=== PATIENT | female | born 1975 | race American Indian/Alaskan Native ===

== ENCOUNTER 2018-02-28 08:53 | Outpatient (CLI) | payer OTHER ==
[2018-02-28 09:40] LABS: Blood Urea Nitrogen 7 mg/dL (7-17)
--- NOTE | 2018-02-28 12:37 | Cat Scan Report ---
CT ABDOMEN PELVIS WITH CONTRAST: HISTORY: Diverticulitis. COMPARISON: 01/29/13. TECHNIQUE: Helical CT in 1.25mm intervals following IV contrast. Sagittal and coronal reconstructions. FINDINGS: Lung bases: Normal. Liver: Normal. Biliary system: Normal. Pancreas: Normal. Spleen: Normal. Kidneys/ureters/bladder: Normal. Adrenal glands: Normal. Aorta: Normal. Intestines: Near complete resolution of the inflammatory changes in the sigmoid colon is demonstrated since the previous examination. Minimal fat stranding remains in the pelvis. No evidence for abscess or new areas of inflammation. 90% resolution of the diverticulitis is suspected. The remaining bowel loops are unremarkable. Appendix: Not confidently identified, correlate with surgical history. Pelvic viscera: The uterus is enlarged and lobular consistent with fibroids. No adnexal cyst or mass. Ascites: None. Adenopathy: None. Musculoskeletal: Normal. IMPRESSION: Computer near complete resolution of the sigmoid diverticulitis since 01/29/18. Uterine fibroid disease, stable.
== END 2018-02-28 08:54 | disposition home or self-care (01) ==
LOC: CT 08:53
PROVIDERS: ATTEND Surgery
DX: K57.30 Diverticulosis of large intestine without perforation or abscess without bleeding (principal); D25.9 Leiomyoma of uterus, unspecified
CPT/HCPCS: 36415; 74177; 82565; 84520; Q9967

== ENCOUNTER 2018-06-25 07:42 | Day surgery (SDC) | payer OTHER ==
[2018-06-25] MEDS ORDERED: NACL 0.9% 1000 ML 1,000 ML IV SCH (10:00)
--- NOTE | 2018-06-25 10:12 | Anesthesia Consultation ---
Anesthesia Consult and Med Hx - Airway Anesthetic Teeth Evaluation: Good, Caps (gold tooth front upper incisor cap) ROM Head & Neck: Adequate Mental/Hyoid Distance: Adequate Mallampati Class: Class II Intubation Access Assessment: Good - Pulmonary Exam CTA: Yes - Cardiac Exam Cardiac Exam: RRR - Pre-Operative Health Status ASA Pre-Surgery Classification: ASA3 Proposed Anesthetic Plan: MAC - Pulmonary Hx Smoking: No Hx Asthma: Yes (daily advair and PRN albuterol) SOB: No - Cardiovascular System Hx Hypertension: Yes Hx Pacemaker: No Hx Internal Defibrillator: No - Additional Comments Anesthesia Medical History Comments: Hx of anxiety , asthma- advair BID , albuterol PRN , and HTN
--- NOTE | 2018-06-25 10:13 | Anesthesia Day of Surgery ---
Anesthesia Day of Surgery - Day of Surgery Patient H&P Reviewed: No Patient is NPO: No
[2018-06-25] MEDS ORDERED: DIPRIVAN 10 MG/ML IV ONE ×2 (10:20)
--- NOTE | 2018-06-25 10:51 | Short Stay Summary ---
Short Stay Documentation Date of service: 06/25/18 Narrative H&P: the patient presents for diagnostic colonoscopy due to recent history of suspected diverticulitis, LLQ pain and exclusion of malignancy - History Past Medical History: hypertension Past Surgical History: Other (tubal ligation) Social history: no significant social history, no smoking, no alcohol abuse - Allergies and Medications Current Medications: Allergies No Known Allergies Allergy (Verified 01/23/18 12:11) Home Medications Medication Instructions Recorded Confirmed Last Taken Type Lisinopril [Prinivil] 5 mg PO QDAY 01/23/18 06/25/18 06/25/18 History ALBUTEROL Inhaler(NF) 2 puff INHALATION BID 06/25/18 06/25/18 06/24/18 History Advair 100-50 Diskus 1 puff INHALATION DAILY 06/25/18 06/25/18 06/23/18 History Prempro 0.3 mg-1.5 mg Tablet 1 tab PO DAILY 06/25/18 06/25/18 06/24/18 History Active Medications Sodium Chloride (Nacl 0.9% 1000 Ml) 1,000 mls @ 50 mls/hr IV DIRECT JAILYN Last Admin: 06/25/18 10:04 Dose: 50 mls/hr Documented by: - Physical exam General appearance: no acute distress, well-nourished Integumentary: no rash, no growths, no abnormal pigmentation HEENT: Atraumatic, PERRLA, EOMI Lungs: Clear to auscultation, Normal air movement Breasts: deferred Heart: Regular rate, Normal S1, Normal S2, No murmurs Gastrointestinal: normoactive bowel sounds, no tenderness, no distended, no masses, no guarding, no organomegaly, no hepatomegaly, no splenomegaly, no obese Female Genitourinary: deferred Rectal Exam: deferred Extremities: no ischemia, pulses intact, pulses symmetrical, No edema, normal temperature, normal color, Full ROM Neurological: Normal gait, Normal speech, Strength at 5/5 X4 ext, Normal tone, Sensation intact, Cranial nerves 3-12 NL - Brief post op/procedure progress note Date of procedure: 06/25/18 Findings: see dictated report Estimated blood loss: none Pathology: none Condition: stable - Disposition Condition at discharge: Good Disposition: DC-01 TO HOME OR SELFCARE - Discharge Diagnoses (1) History of diverticulitis Status: Acute (2) LLQ abdominal pain Status: Acute Short Stay Discharge Plan Activity: other (No driving for 24 hours) Weight Bearing Status: Weight Bear as Tolerated Diet: regular Follow up with: ALEKSANDRA ACHARYA MD [Primary Care Provider] - 7 Days
--- NOTE | 2018-06-25 10:52 | Operative Report ---
Operative Report Operative Report: Date of procedure: 06/25/2018 Preprocedure diagnosis: History of diverticulitis. Left lower quadrant pain, r ule out neoplasia of the colon. Post procedure diagnosis: Diverticula in the left and right colon Procedure: Colonoscopy to the cecum Endoscopist: Dr. Navarrete Anesthesia: Monitored anesthesia care per anesthesia department Estimated blood loss: 0 Medications: Monitored anesthesia care. See separate report by anesthesia for details. After careful discussion of the nature and purpose of the procedure as well as details of the technique risks benefits and alternatives the patient gave consent. Please see recent history and physical from the office. The patient was placed in the left lateral decubitus position and medicated per anesthesia. A rectal exam was performed sphincter tone was normal there were no masses palpable. The [employer] 570 scope was passed transanally and advanced under continuous direct vision without difficulty to the cecum. The colon was well prepared. The cecum was normal. The ascending colon scattered diverticula but otherwise was normal and on forward and retroflexed views. The transverse colon was normal. There were afterwards diverticula in the descending colon and sigmoid colon. The rectum was normal on forward and retroflexed views. The procedure was well-tolerated overall and the patient was observed in recovery. Conclusions: Scattered diverticula in the right and left colon. No evidence of neoplasia. Plan: Repeat colonoscopy in 10 years for screening purposes, unless indicated sooner. Signed electronically: Robel Navarrete M.D.
[2018-06-25 12:11] VITALS: BP 119/83
== END 2018-06-25 07:43 | disposition home or self-care (01) ==
LOC: GIO 07:42
PROVIDERS: ATTEND Internal Medicine Gastroenterology
DX: K57.30 Diverticulosis of large intestine without perforation or abscess without bleeding (principal); K57.32 Diverticulitis of large intestine without perforation or abscess without bleeding; R10.32 Left lower quadrant pain; I10 Essential (primary) hypertension; J45.909 Unspecified asthma, uncomplicated; F32.9 Major depressive disorder, single episode, unspecified; F41.9 Anxiety disorder, unspecified; Z98.51 Tubal ligation status; Z79.899 Other long term (current) drug therapy; Z87.440 Personal history of urinary (tract) infections; Z87.19 Personal history of other diseases of the digestive system; Z98.890 Other specified postprocedural states
CPT/HCPCS: 45378; J2704; J7030

== ENCOUNTER 2018-10-28 10:37 | Emergency (ER) | payer OTHER ==
[2018-10-28 11:27] LABS: Basophils # (Auto) 0.1 K/mm3 (0.0-0.1); Basophils % (Auto) 0.9 % (0.0-1.8); Eosinophils # (Auto) 0.1 K/mm3 (0.0-0.4); Eosinophils % (Auto) 2.3 % (0.0-4.3); Hematocrit 38.5 % (30.3-42.9); Hemoglobin 13.3 gm/dl (10.1-14.3); Lymphocytes # (Auto) 1.9 K/mm3 (1.2-5.4); Lymphocytes % (Auto) 29.6 % (13.4-35.0); Mean Corpuscular HGB Conc 35 % (30-34); Mean Corpuscular Volume 89 fl (79-97); Monocytes # (Auto) 0.5 K/mm3 (0.0-0.8); Monocytes % (Auto) 7.2 % (0.0-7.3); Platelet Count 257 K/mm3 (140-440); Red Blood Count 4.33 M/mm3 (3.65-5.03); Red Cell Distribution Width 13.7 % (13.2-15.2)
[2018-10-28 11:48] LABS: Alanine Aminotransferase 13 units/L (7-56); Albumin 3.9 g/dL (3.9-5); BUN/Creatinine Ratio 10; Blood Urea Nitrogen 6 mg/dL (7-17); Calcium 8.7 mg/dL (8.4-10.2); Hemolysis Index 8
--- NOTE | 2018-10-28 12:13 | Emergency Department Report ---
ED Abdominal Pain HPI - General Chief Complaint: Abdominal Pain Stated Complaint: ABD PAIN/NAUSEA Time Seen by Provider: 10/28/18 12:03 Source: patient Mode of arrival: Ambulatory Limitations: No Limitations - History of Present Illness Initial Comments: Patient is 43 years old female with history of diverticulitis. Patient presented to the ER complaining of left lower quadrant abdominal pain for the last 3 days associated with nausea. Patient denied any diarrhea, fever or chills. MD Complaint: abdominal pain -: days(s) Location: LLQ Radiation: none Severity: moderate Severity scale (0 -10): 5 Quality: sharp Consistency: intermittent - Related Data Home Medications Medication Instructions Recorded Confirmed Last Taken Lisinopril [Prinivil] 5 mg PO QDAY 01/23/18 06/25/18 06/25/18 ALBUTEROL Inhaler(NF) 2 puff INHALATION BID 06/25/18 06/25/18 06/24/18 Advair 100-50 Diskus 1 puff INHALATION DAILY 06/25/18 06/25/18 06/23/18 Prempro 0.3 mg-1.5 mg Tablet 1 tab PO DAILY 06/25/18 06/25/18 06/24/18 Allergies Allergy/AdvReac Type Severity Reaction Status Date / Time No Known Allergies Allergy Verified 01/23/18 12:11 ED Review of Systems ROS: Stated complaint: ABD PAIN/NAUSEA Other details as noted in HPI Comment: All other systems reviewed and negative Constitutional: denies: chills, fever Cardiovascular: denies: chest pain Gastrointestinal: abdominal pain, nausea. denies: vomiting, diarrhea, constipation, hematemesis, melena, hematochezia Musculoskeletal: denies: back pain Neurological: denies: headache, weakness ED Past Medical Hx - Past Medical History Previous Medical History?: Yes Hx Hypertension: Yes Hx Deep Vein Thrombosis: No Hx Asthma: Yes (daily advair and PRN albuterol) Additional medical history: Diverticulitis - Surgical History Past Surgical History?: Yes Hx Pacemaker: No Hx Internal Defibrillator: No Additional Surgical History: ABLATION-ENDOMETRIAL - Social History Smoking Status: Never Smoker Substance Use Type: None - Medications Home Medications: Home Medications Medication Instructions Recorded Confirmed Last Taken Type Lisinopril [Prinivil] 5 mg PO QDAY 01/23/18 06/25/18 06/25/18 History ALBUTEROL Inhaler(NF) 2 puff INHALATION BID 06/25/18 06/25/18 06/24/18 History Advair 100-50 Diskus 1 puff INHALATION DAILY 06/25/18 06/25/18 06/23/18 History Prempro 0.3 mg-1.5 mg Tablet 1 tab PO DAILY 06/25/18 06/25/18 06/24/18 History ED Physical Exam - General Limitations: No Limitations General appearance: alert, in no apparent distress - Head Head exam: Present: atraumatic, normocephalic, normal inspection - Eye Eye exam: Present: normal appearance, PERRL - ENT ENT exam: Present: normal exam, normal orophraynx, mucous membranes moist - Neck Neck exam: Present: normal inspection, full ROM. Absent: tenderness, meningismus, lymphadenopathy, thyromegaly - Respiratory Respiratory exam: Present: normal lung sounds bilaterally - Cardiovascular Cardiovascular Exam: Present: regular rate, normal rhythm, normal heart sounds - GI/Abdominal GI/Abdominal exam: Present: soft, tenderness, normal bowel sounds. Absent: distended, guarding, rebound, rigid, organomegaly, mass, bruit, pulsatile mass, hernia - Extremities Exam Extremities exam: Present: normal inspection, full ROM, normal capillary refill. Absent: tenderness, pedal edema, calf tenderness - Back Exam Back exam: Present: normal inspection, full ROM. Absent: CVA tenderness (R), CVA tenderness (L), muscle spasm, paraspinal tenderness, vertebral tenderness - Neurological Exam Neurological exam: Present: alert, oriented X3, CN II-XII intact, normal gait, reflexes normal - Psychiatric Psychiatric exam: Present: normal mood - Skin Skin exam: Present: warm, intact, normal color ED Course Vital Signs 10/28/18 10:56 Temperature 97.6 F Pulse Rate 84 Respiratory 18 Rate Blood Pressure 106/73 O2 Sat by Pulse 96 Oximetry ED Medical Decision Making - Lab Data Result diagrams: 10/28/18 11:08 10/28/18 11:08 - Radiology Data Radiology results: report reviewed Referring Physician: DULCE MARIA ESCALONA Patient Name: MARA FIGUEROA Date of : 1975 Sex: Female Report Date: 2018-10-28 Report Status: Finalized Findings [address] [place] [address] Cat Scan Report Signed Patient: MARA FIGUEROA MR#: [id number] : 1975 Acct:[id number] Age/Sex: 43 / F ADM Date: 10/28/18 Loc: ED Attending Dr: Ordering Physician: DULCE MARIA ESCALONA Date of Service: 10/28/18 Procedure(s): CT abdomen pelvis w con Accession Number(s): [id number] cc: DULCE MARIA ESCALONA CT ABDOMEN AND PELVIS WITH CONTRAST HISTORY: abdominal pain/history of diverticulitis COMPARISON: None. TECHNIQUE: Axial CT images were obtained through the abdomen and pelvis after 100 cc of Omnipaque 300 intravenously. Sagittal and coronal reformatted images. All CT scans at this location are performed using CT dose reduction for ALARA by means of automated exposure control. FINDINGS: CT ABDOMEN: Lung Bases: Clear. Liver: No significant abnormality. Biliary: No significant abnormality. Spleen: No significant abnormality. Unenlarged. Pancreas: No significant abnormality. Adrenals: No significant abnormality. Kidneys: No significant abnormality. Lymphatics: No lymphadenopathy. Vasculature: No significant abnormality. Bowel/Peritoneum: No evidence for bowel obstruction, mass or focal inflammation. There is trace fluid surrounding the descending duodenum as well as mild mucosal enhancement. No obvious ulceration. No free air. There are scattered diverticula in the colon. The appendix is not confidently identified. CT PELVIS: : The uterus is mildly enlarged. An exophytic fibroid to the left adnexal region measures up to 5.3 cm. A partially calcified fibroid near the uterine fundus measures 3 cm. No adnexal cyst or mass is identified. Osseous Structures: No significant abnormality. Additional Findings: None IMPRESSION: There is trace fluid surrounding the descending duodenum as well as mild mucosal enhancement. These findings suggests peptic ulcer disease. Acute pancreatitis could also be considered but is thought less likely. Please correlate with the clinical presentation of the patient. Uterine fibroid disease. Mild diverticulosis of the colon. Signer Name: Vargas Henry Jr, MD Signed: 10/28/2018 3:15 PM Workstation Name: [id number] Transcribed By: TTR Dictated By: VARGAS HENRY JR, MD Electronically Authenticated By: VARGAS HENRY JR, MD Signed Date/Time: 10/28/181514 DD/ 09 TD/TT: Critical care attestation.: If time is entered above; I have spent that time in minutes in the direct care of this critically ill patient, excluding procedure time. ED Disposition Clinical Impression: Abdominal pain, Peptic ulcer Disposition: - TO HOME OR SELFCARE Is pt being admited?: No Condition: Stable Instructions: Abdominal Pain (ED), Peptic Ulcer (ED) Referrals: PRIMARY CARE, [Primary Care Provider] - 3-5 Days
[2018-10-28 12:33] LABS: Color,Urine Yellow (Yellow)
[2018-10-28 12:34] LABS: Bilirubin,Urine NEG (Negative); Blood,Urine MOD (Negative); Mucus,Urine FEW /HPF; Protein,Urine <15 mg/dL mg/dL (Negative); Urobilinogen,Urine < 2.0 mg/dL (<2.0)
--- NOTE | 2018-10-28 15:19 | Cat Scan Report ---
CT ABDOMEN AND PELVIS WITH CONTRAST HISTORY: abdominal pain/history of diverticulitis COMPARISON: None. TECHNIQUE: Axial CT images were obtained through the abdomen and pelvis after 100 cc of Omnipaque 300 intravenously. Sagittal and coronal reformatted images. All CT scans at this location are performed using CT dose reduction for ALARA by means of automated exposure control. FINDINGS: CT ABDOMEN: Lung Bases: Clear. Liver: No significant abnormality. Biliary: No significant abnormality. Spleen: No significant abnormality. Unenlarged. Pancreas: No significant abnormality. Adrenals: No significant abnormality. Kidneys: No significant abnormality. Lymphatics: No lymphadenopathy. Vasculature: No significant abnormality. Bowel/Peritoneum: No evidence for bowel obstruction, mass or focal inflammation. There is trace fluid surrounding the descending duodenum as well as mild mucosal enhancement. No obvious ulceration. No f ree air. There are scattered diverticula in the colon. The appendix is not confidently identified. CT PELVIS: : The uterus is mildly enlarged. An exophytic fibroid to the left adnexal region measures up to 5.3 cm. A partially calcified fibroid near the uterine fundus measures 3 cm. No adnexal cyst or mass is identified. Osseous Structures: No significant abnormality. Additional Findings: None IMPRESSION: There is trace fluid surrounding the descending duodenum as well as mild mucosal enhancement. These f indings suggests peptic ulcer disease. Acute pancreatitis could also be considered but is thought les s likely. Please correlate with the clinical presentation of the patient. Uterine fibroid disease. Mild diverticulosis of the colon. Signer Name: Vargas Henry Jr, MD Signed: 10/28/2018 3:15 PM Workstation Name: [id number]
[2018-10-28 15:41] VITALS: BP 124/94
== END 2018-10-28 15:39 | disposition home or self-care (01) ==
LOC: ED 10:37
DX: K27.9 Peptic ulcer, site unspecified, unspecified as acute or chronic, without hemorrhage or perforation (principal); I10 Essential (primary) hypertension; J45.909 Unspecified asthma, uncomplicated; Z79.899 Other long term (current) drug therapy
CPT/HCPCS: 36415; 74177; 80053; 81001; 83690; 85025; 99284

== ENCOUNTER 2018-11-20 06:56 | Day surgery (SDC) | payer OTHER ==
[2018-11-20] MEDS ORDERED: WATER FOR IRRIG STERILE 1,000 ML BOTTLE ONE (07:16)
[2018-11-20] MEDS ORDERED: WATER FOR IRRIG STERILE 250 ML BOTTLE IR ONE (07:16)
[2018-11-20] MEDS ORDERED: SODIUM CHLORIDE 0.9% 1000 ML 1,000 ML IV SCH (08:00)
--- NOTE | 2018-11-20 08:03 | Anesthesia Consultation ---
Anesthesia Consult and Med Hx Date of service: 11/20/18 - Airway Anesthetic Teeth Evaluation: Good ROM Head & Neck: Adequate Mental/Hyoid Distance: Adequate Mallampati Class: Class II Intubation Access Assessment: Probably Good - Pulmonary Exam CTA: Yes - Cardiac Exam Cardiac Exam: RRR - Pre-Operative Health Status ASA Pre-Surgery Classification: ASA2 Proposed Anesthetic Plan: MAC - Pulmonary Hx Asthma: Yes (No recent hospitalization) - Cardiovascular System Hx Hypertension: Yes
--- NOTE | 2018-11-20 08:04 | Anesthesia Day of Surgery ---
Anesthesia Day of Surgery - Day of Surgery Patient Examined: Yes Patient H&P Reviewed: Yes Patient is NPO: Yes Beta Blockers: No
[2018-11-20] MEDS ORDERED: LIDOCAINE (2%) 20 MG/1 ML VIAL 20 ML MDV INFILTRATI ONE (08:07)
[2018-11-20] MEDS ORDERED: PROPOFOL 200 MG/20 ML VIAL IV ONE (08:07)
--- NOTE | 2018-11-20 09:07 | Short Stay Summary ---
Short Stay Documentation Date of service: 11/20/18 - History H&P: obtained from office - Allergies and Medications Current Medications: Allergies No Known Allergies Allergy (Verified 01/23/18 12:11) Home Medications Medication Instructions Recorded Confirmed Last Taken Type Lisinopril [Prinivil] 5 mg PO QDAY 01/23/18 11/20/18 11/20/18 History ALBUTEROL Inhaler(NF) 2 puff INHALATION BID 06/25/18 11/20/18 11/13/18 History Advair 100-50 Diskus 1 puff INHALATION DAILY 06/25/18 11/20/18 06/23/18 History Prempro 0.3 mg-1.5 mg Tablet 1 tab PO DAILY 06/25/18 11/20/18 11/19/18 History Active Medications Sodium Chloride (Nacl 0.9% 1000 Ml) 1,000 mls @ 50 mls/hr IV DIRECT JAILYN Last Admin: 11/20/18 07:53 Dose: 50 mls/hr Documented by: - Brief post op/procedure progress note Date of procedure: 11/20/18 Findings: see dictation Estimated blood loss: none Pathology: list (antrum biopsies for h.pylori) Specimen disposition: to lab Condition: stable - Disposition Condition at discharge: Good Disposition: DC-01 TO HOME OR SELFCARE - Discharge Diagnoses (1) Epigastric pain Status: Acute Short Stay Discharge Plan Activity: other (no driving for 24 hours) Weight Bearing Status: Full Weight Bearing Diet: regular Follow up with: ALEKSANDRA ACHARYA MD [Primary Care Provider] - 7 Days
--- NOTE | 2018-11-20 09:10 | Operative Report ---
Operative Report Operative Report: Date of procedure: 11/20/2018 Procedure: Esophagogastroduodenoscopy with antral biopsies for H. pylori. Preprocedure diagnosis: Epigastric pain not responsive to PPI therapy Post procedure diagnosis: Mild gastritis. No active ulcers. Small hiatus hernia. Mild distal esophagitis. Endoscopist: Dr. Navarrete Anesthesia: Monitored anesthesia care per anesthesia department Medications: Propofol per anesthesia. Estimated blood loss: 0 After careful discussion of the nature and purpose of the procedure as well as details the technique risks benefits and alternatives consent was obtained. The patient was placed in the left lateral decubitus position and medicated per anesthesia. The tip of the [employer] 570 video scope was passed per orum under direct vision into the esophagus and advanced into the stomach and descending duodenum. The descending duodenum the duodenal bulb and pylorus were symme trical and normal. The scope was withdrawn into the stomach and the stomach then gently insufflated with air. The antrum revealed patchy erythema but no ulcers or erosions. Biopsies were taken for H. pylori testing. The stomach was further insufflated and the scope was then retroflexed and partially withdrawn. The cardia, fundus, and body of the stomach were within normal limits and easily distensible.The scope was then withdrawn in the forward position. A small hiatus hernia was present. The esophagogastric junction was at 38 cm. Minimal distal esophagitis was present consistent with reflux, LA class A. The esophageal body was flowers normal throughout. The procedure was was well tolerated and the patient was observed in recovery. Impressions: Minimal antral gastritis. No active ulcers. Small hiatus hernia. Mild distal esophagitis. Plan: Await biopsies for H. pylori. Consideration of right upper quadrant ultrasound if not yet done. Electronically signed: Robel Navarrete MD
[2018-11-20 09:58] VITALS: BP 106/74
--- NOTE | 2018-11-20 15:49 | Post Anesthesia Evaluation ---
- Post Anesthesia Evaluation Patient Participated: Yes Airway Patent: Yes Stable Respiratory Function: Yes Nausea/Vomiting: No Temp > 96.8F: Yes Pain Manageable: Yes Adequeate Hydration: Yes Anesthesia Complications: No Block Receding Appropriately: Not Applicable Patient on Ventilator: No
== END 2018-11-20 06:57 | disposition home or self-care (01) ==
LOC: GIO 06:56
PROVIDERS: ATTEND Internal Medicine Gastroenterology
DX: K29.50 Unspecified chronic gastritis without bleeding (principal); K44.9 Diaphragmatic hernia without obstruction or gangrene; K20.8 Other esophagitis; R10.12 Left upper quadrant pain; K57.32 Diverticulitis of large intestine without perforation or abscess without bleeding; J45.909 Unspecified asthma, uncomplicated; I10 Essential (primary) hypertension; G43.909 Migraine, unspecified, not intractable, without status migrainosus; F41.9 Anxiety disorder, unspecified; F32.9 Major depressive disorder, single episode, unspecified; Z98.890 Other specified postprocedural states; Z98.51 Tubal ligation status; Z79.899 Other long term (current) drug therapy; Z83.3 Family history of diabetes mellitus; Z72.89 Other problems related to lifestyle; Z87.440 Personal history of urinary (tract) infections
CPT/HCPCS: 43239; 88305; 88342; J2704; J7030

== ENCOUNTER 2018-11-29 08:40 | Outpatient (CLI) | payer OTHER ==
--- NOTE | 2018-11-29 12:25 | Ultrasound Report ---
. LIMITED RUQ ABDOMINAL ULTRASOUND INDICATION: R10.13) EPIGASTIC PAIN. COMPARISON: No relevant prior imaging study available. FINDINGS: Pancreas: Visualized portions show no significant abnormality. Abdominal Aorta: No significant abnormality. IVC: No significant abnormality. Liver: The liver measures 18 cm in length. No significant abnormality. Normal hepatopedal blood flow in the main portal vein. Gallbladder: No significant abnormality. Bile ducts: No significant abnormality. Common bile duct measures 2.0 mm. Right kidney: No significant abnormality visualized.. Free fluid: None. Additional Findings: None. IMPRESSION: Unremarkable right upper quadrant ultrasound.. Signer Name: Vargas Henry Jr, MD Signed: 11/29/2018 12:21 PM Workstation Name: [id number]
== END 2018-11-29 08:41 | disposition home or self-care (01) ==
LOC: US 08:40
PROVIDERS: ATTEND Internal Medicine Gastroenterology
DX: R10.13 Epigastric pain (principal); I10 Essential (primary) hypertension; Z98.51 Tubal ligation status
CPT/HCPCS: 76705

== ENCOUNTER 2019-01-01 06:06 | Observation (INO) | payer OTHER ==
[2018-12-30 14:20] LABS: Basophils % (Auto) 0.5 % (0.0-1.8); Eosinophils # (Auto) 0.1 K/mm3 (0.0-0.4); Eosinophils % (Auto) 1.6 % (0.0-4.3); Hematocrit 39.4 % (30.3-42.9); Hemoglobin 13.5 gm/dl (10.1-14.3); Lymphocytes # (Auto) 1.7 K/mm3 (1.2-5.4); Lymphocytes % (Auto) 30.5 % (13.4-35.0); Mean Corpuscular HGB Conc 34 % (30-34); Mean Corpuscular Volume 90 fl (79-97); Monocytes # (Auto) 0.4 K/mm3 (0.0-0.8); Monocytes % (Auto) 7.1 % (0.0-7.3); Platelet Count 274 K/mm3 (140-440); Red Cell Distribution Width 14.3 % (13.2-15.2)
--- NOTE | 2018-12-30 14:21 | Anesthesia Consultation ---
Anesthesia Consult and Med Hx Date of service: 01/01/19 - Airway Anesthetic Teeth Evaluation: Chipped, Caps ROM Head & Neck: Adequate Mental/Hyoid Distance: Adequate Mallampati Class: Class II Intubation Access Assessment: Probably Good - Pre-Operative Health Status ASA Pre-Surgery Classification: ASA2 Proposed Anesthetic Plan: General Nerve Block: TAP - Pulmonary Hx Smoking: No Hx Asthma: Yes (Last used inhaler 2 mos ago) SOB: No - Cardiovascular System Hx Hypertension: Yes (x 2 yrs. States she can climb two flights of stairs) Hx Pacemaker: No Hx Internal Defibrillator: No - Central Nervous System Hx Psychiatric Problems: No - Gastrointestinal Hx Ulcer: Yes (Diverticulosis) Hx Gastroesophageal Reflux Disease: Yes - Hematic Hx Sickle Cell Disease: No - Other Systems Hx Alcohol Use: Yes (Occas) Hx Cancer: No
--- NOTE | 2018-12-31 17:14 | History and Physical Report ---
History of Present Illness Date of examination: 12/30/18 Date of admission: 01/01/2019 Chief complaint: pelvic pain and fibroids History of present illness: 43y/o with symptomatic uterine fibroids. The patient reports having worsening lower back and pelvic pain. Pelvic ultrasound demonstrates a leiomyoma measuring 6.2cm. The patient reports worsening of her symptoms Past History Past Medical History: asthma, hypertension, other (fibroids; diverticulosis) Past Surgical History: other (endometrial ablation; tubal ligation) Social history: - Obstetrical History : 3 Para: 2 Hx # Term Pregnancies: 1 Number of Pregnancies: 1 Spontaneous Abortions: 1 Induced : 0 Number of Living Children: 2 Medications and Allergies Allergies Allergy/AdvReac Type Severity Reaction Status Date / Time No Known Allergies Allergy Verified 12/26/18 16:53 Home Medications Medication Instructions Recorded Confirmed Last Taken Type Lisinopril [Prinivil] 10 mg PO QDAY 01/23/18 12/26/18 11/20/18 History ALBUTEROL Inhaler(NF) 2 puff INHALATION BID PRN 06/25/18 12/26/18 11/13/18 History Prempro 0.3 mg-1.5 mg Tablet 1 tab PO DAILY 06/25/18 12/26/18 11/19/18 History Esomeprazole Magnesium [NexIUM] 40 mg PO QDAY 12/26/18 12/26/18 Unknown History Sucralfate [Carafate] 1 tab PO ACHS 12/26/18 12/26/18 Unknown History Active Meds: Active Medications Celecoxib (Celebrex) 200 mg PO PREOP NR Stop: 01/01/19 23:00 Fentanyl (Sublimaze) 100 mcg IV ONCE PRN PRN Reason: sedation for nerve block Gabapentin (Gabapentin) 300 mg PO PREOP NR Stop: 01/01/19 23:00 Lactated Ringer's (Lactated Ringers) 1,000 mls @ 100 mls/hr IV DIRECT JAILYN Midazolam HCl (Versed) 2 mg IV PREOP NR Stop: 01/01/19 23:00 Review of Systems All systems: negative Genitourinary: pelvic pain - Vital Signs Vital signs: Vital Signs Temp Pulse Resp BP Pulse Ox 97.8 F 78 20 132/94 100 12/30/18 13:30 12/30/18 13:30 12/30/18 13:30 12/30/18 13:30 12/30/18 13:30 Temp Pulse Resp BP Pulse Ox 97.8 F 78 20 132/94 100 12/30/18 13:30 12/30/18 13:30 12/30/18 13:30 12/30/18 13:30 12/30/18 13:30 - Physical Exam Breasts: Positive: deferred Cardiovascular: Regular rate Lungs: Positive: Clear to auscultation Abdomen: Positive: normal appearance Results Result Diagrams: 12/30/18 13:45 All other labs normal. Assessment and Plan - Patient Problems (1) Chronic pelvic pain in female Status: Acute Plan to address problem: scheduled for a robotic hysterectomy (2) Leiomyoma Status: Acute
[~2019-01-01 06:06] MED LIST: CELECOXIB 200 MG CAP PO NR; GABAPENTIN 300 MG CAP PO NR; LACTATED RINGERS 1,000 ML IV SCH; MIDAZOLAM 2 MG/2 ML INJ IV NR; ceFAZolin/Water 2 GM/20 ML 2 GM/20 ML SYRINGE IV NR; fentaNYL 100 MCG/2 ML INJ IV PRN
[2019-01-01] MEDS ORDERED: ceFAZolin/STERILE WATER 2 GM/20 ML SYRINGE IV NR (07:15)
[2019-01-01] MEDS ORDERED: dexAMETHasone 4 MG/ML VIAL ONE (07:16)
[2019-01-01] MEDS ORDERED: BUPIVACAINE-EPINEPHRINE/PF 0.25%-1:200,000 (30 ML) VIAL INFILTRATI ONE (07:16)
[2019-01-01] MEDS ORDERED: MIDAZOLAM 2 MG/2 ML INJ ONE (07:19)
[2019-01-01] MEDS ORDERED: ROCURONIUM 50 MG/5 ML INJ IV ONE (07:19)
[2019-01-01] MEDS ORDERED: fentaNYL 100 MCG/2 ML INJ ONE (07:19)
[2019-01-01] MEDS ORDERED: LIDOCAINE MPF (2%) 20 MG/1 ML VIAL 5 ML ONE (07:19)
[2019-01-01] MEDS ORDERED: PROPOFOL 200 MG/20 ML VIAL IV ONE (07:19)
[2019-01-01] MEDS ORDERED: NEOMY 40 MG/POLYMYXIN B 200,000 UNITS/ML (GU) AMPULE IR ONE ×2 (07:20→08:41)
--- NOTE | 2019-01-01 07:29 | Anesthesia Day of Surgery ---
Anesthesia Day of Surgery - Day of Surgery Patient Examined: Yes Patient H&P Reviewed: Yes Patient is NPO: Yes
[2019-01-01] MEDS ORDERED: HYDROmorphone 1 MG/1 ML INJ IV PRN (07:31)
[2019-01-01] MEDS ORDERED: ONDANSETRON 4 MG/2 ML INJ ONE (08:42)
[2019-01-01] MEDS ORDERED: SODIUM CHLORIDE 0.9% IRR 1,500 ML BOTTLE IR ONE (08:42)
[2019-01-01] MEDS ORDERED: dexAMETHasone 20 MG/5 ML VIAL ONE (08:42)
[2019-01-01] MEDS ORDERED: PHENYLEPHRINE/NS 1,000 MCG/10 ML SYRINGE (OR USE) IV ONE ×2 (08:42→09:20)
[2019-01-01] MEDS ORDERED: METOCLOPRAMIDE 10 MG/2 ML INJ ONE (08:42)
[2019-01-01] MEDS ORDERED: SODIUM CHLORIDE 0.9% IRRIG SOLN 2000 ML IR ONE (08:44)
[2019-01-01] MEDS ORDERED: KETOROLAC 30 MG/1 ML INJ ONE (08:45)
[2019-01-01] MEDS ORDERED: NEOSTIGMINE 10MG/10 ML INJ MDV ONE (09:15)
[2019-01-01] MEDS ORDERED: GLYCOPYRROLATE 0.4 MG/2 ML INJ ONE ×2 (09:15→09:18)
[2019-01-01] MEDS ORDERED: MORPHINE 4 MG/1 ML INJ IV PRN (09:22)
[2019-01-01] MEDS ORDERED: ACETAMINOPHEN 325 MG TAB PO PRN (09:22)
[2019-01-01] MEDS ORDERED: ONDANSETRON 4 MG/2 ML INJ IV PRN (09:22)
[2019-01-01] MEDS ORDERED: IBUPROFEN 800 MG TAB PO PRN (09:22)
--- NOTE | 2019-01-01 09:22 | Operative Report ---
Operative Report Operative Report: Date of surgery: 01/01/2019 Preoperative diagnoses: Symptomatic uterine fibroids; chronic pelvic pain Postoperative diagnoses: Same as above Procedure: Robotic hysterectomy and bilateral salpingo-oophorectomy Surgeon: Nirmala Figueredo M.D. Mail Technician: Joy Guzman Anesthesia: Gen. endotracheal anesthesia Estimated blood loss: 50 mL Pathology: Uterus, cervix, leiomyomas, bilateral tubes and ovaries Indication: 43-year-old with a history of symptomatic uterine fibroids. The patient complains of worsening pelvic pain and lower back pain. Its undergo definitive surgical management. Procedure: The patient was taken to the operating room and given general endotracheal anesthesia without complication. She is prepped and draped in a normal sterile fashion. A bivalve speculum was placed in the patient's vagina and a single- tooth tenaculum placed on the anterior lip of the cervix. The uterus was sounded with the uterine sound. A [employer] uterine manipulator was placed in the bivalve speculum was then removed. Attention was then turned to the patient's abdomen where a 12 millimeter supra umbilical skin incision was then made. A Veress needle was placed and peritoneal entry was verified water-filled syringe. Insufflation of the peritoneal cavity was performed with CO2 gas. The 12 mm trocar was then placed under direct visualization. An additional 8 mm trocar was placed on the patient's left and right lateral side just opposite of the supraumbilical trocar. An additional 5 mm right lateral trocar was then placed as the accessory port. The Gomez Martin device was used to close the fascia of the 12 mm incision. The patient was then placed in steep Trendelenburg. The da Haile robot was then engaged. General survey of the patient's abdomen and pelvis revealed a significantly enlarged fibroid uterus. There was a large leiomyoma on the fundus of the uterus measuring 6-7 cm. A fenestrated forcep was placed in arm 2 and a vessel sealer was placed in arm 1. The surgeon then transferred to the surgical console. The infundibulopelvic ligament was then isolated on the right. The vessel sealer was used to coagulate the ligament which was then transected. The tube and ovary were transected from the supply. The round ligament was then coagulated and transected also. The vesicouterine peritoneum was then entered from the patient's right side. The uterine vessels were then coagulated with the vessel sealer. The vessels were then transected . Attention was then turned to the patient's left side where the infundibulopelvic ligament and mesosalpinx were again isolated coagulated and transected. The vesical peritoneum was then entered from the left and joined in the midline. Peritoneum was reflected off of the lower uterine segment. Uterine vessels were then coagulated and then transected. The blood supply to the uterus was adequately contained, a posterior colpotomy was made. The V care ring was visualized. Posterior colpotomy was created with the monopolar scissors. The incision was continued circumferentially until anterior colpotomy was made. The cervix and uterus were amputated from the vaginal cuff. The fundal myoma was excised in order to facilitate passage through the vagina. The uterus was then bivalved with the monopolar scissors.The uterus was then removed along with the leiomyoma, tubes and ovaries bilaterally through the vagina and a warm laparotomy sponge was placed and maintain the pneumoperit oneum. The vaginal cuff was then closed in a running fashion with V lock suture. Irrigation of the pelvis was performed. Hemoblast was applied to the incision. The skin was then reapproximated with 4-0 Monocryl. The tissue was sent to pathology which included the cervix, uterus, leiomyomas, tubes and ovaries. The patient was then successfully extubated. She was then taken to the recovery room in stable condition. All sponge laps and needle counts were correct x2.
[2019-01-01] MEDS ORDERED: D5W/LACTATED RINGERS 1,000 ML IV SCH (10:00)
[2019-01-01] MEDS ORDERED: LACTATED RINGERS 1,000 ML ONE ×2 (10:16→11:18)
[2019-01-01] MEDS ORDERED: ePHEDrine SULFATE 50 MG/1 ML INJ ONE (11:03)
[2019-01-01 11:14] LABS: Basophils % (Auto) 0.3 % (0.0-1.8); Eosinophils % (Auto) 0.2 % (0.0-4.3); Hematocrit 36.5 % (30.3-42.9); Hemoglobin 12.2 gm/dl (10.1-14.3); Lymphocytes # (Auto) 0.8 K/mm3 (1.2-5.4); Lymphocytes % (Auto) 12.9 % (13.4-35.0); Mean Corpuscular HGB Conc 33 % (30-34); Mean Corpuscular Volume 90 fl (79-97); Monocytes # (Auto) 0.2 K/mm3 (0.0-0.8); Monocytes % (Auto) 2.6 % (0.0-7.3); Platelet Count 269 K/mm3 (140-440); Red Blood Count 4.07 M/mm3 (3.65-5.03); Red Cell Distribution Width 14.5 % (13.2-15.2)
[2019-01-01] MEDS ORDERED: ePHEDrine SULFATE 50 MG/1 ML INJ IM ONE (11:15)
--- NOTE | 2019-01-01 13:17 | Post Anesthesia Evaluation ---
- Post Anesthesia Evaluation Patient Participated: Yes Airway Patent: Yes Stable Respiratory Function: Yes Nausea/Vomiting: No Temp > 96.8F: Yes Pain Manageable: Yes Adequeate Hydration: Yes Anesthesia Complications: No Block Receding Appropriately: No (Block for post op analgesia) Other Comments: Hypotension noted while in PACU. HR normal sinus on monitor, adequate UOP, abdomen soft and appropriately tender. CBC showed 1g drop in Hb. BP improved with fluid bolus and IM ephedrine.
[2019-01-01] MEDS: oxyCODONE /ACETAMINOPHEN 5-325MG TAB PO PRN (16:29)
[2019-01-01] MEDS: KETOROLAC 30 MG/1 ML INJ IV SCH (21:12)
[2019-01-01] MEDS ORDERED: ZOLPIDEM 5 MG TAB PO PRN (22:00)
[2019-01-02] MEDS: KETOROLAC 30 MG/1 ML INJ IV SCH ×2 (04:44→11:45)
[2019-01-02 04:48] LABS: Hematocrit 38.3 % (30.3-42.9); Hemoglobin 12.7 gm/dl (10.1-14.3)
[2019-01-02] MEDS: oxyCODONE /ACETAMINOPHEN 5-325MG TAB PO PRN (09:36)
--- NOTE | 2019-01-02 13:08 | Progress Note ---
Assessment and Plan - Patient Problems (1) Chronic pelvic pain in female Current Visit: No Status: Acute Plan to address problem: patient doing well discharge home (2) Leiomyoma Current Visit: No Status: Acute Subjective - Subjective Date of service: 01/02/19 Interval history: Patient doing well. Tolerating regular diet. Pain well controlled. Patient reports: appetite normal, voiding normally, pain well controlled Objective - Vital Signs Latest vital signs: Vital Signs Temp Pulse Pulse Resp Resp BP BP 01/02/19 09:36 20 01/02/19 07:27 97.9 F 79 18 102/62 01/02/19 05:35 97.8 F 75 20 95/62 01/02/19 05:14 18 01/02/19 04:44 18 01/02/19 01:15 97.7 F 73 18 98/60 01/01/19 22:00 18 01/01/19 21:42 18 01/01/19 21:12 18 01/01/19 20:33 97.2 F L 90 22 99/61 01/01/19 20:30 80 18 01/01/19 17:13 97.4 F L 92 H 18 90/60 Pulse Ox 01/02/19 09:36 01/02/19 07:27 96 01/02/19 05:35 95 01/02/19 05:14 01/02/19 04:44 01/02/19 01:15 95 01/01/19 22:00 01/01/19 21:42 01/01/19 21:12 01/01/19 20:33 95 01/01/19 20:30 01/01/19 17:13 Intake and Output 01/01/19 01/02/19 01/02/19 22:59 06:59 14:59 Intake Total 840 240 Output Total 2600 1300 Balance -1760 -1060 Intake: Oral 840 240 Output: Urine 2600 1300 Indwelling Catheter 2600 1300 Other: Total, Intake Amount 480 240 Total, Output Amount 800 1300 Voiding Method Indwelling Catheter - Exam Lungs: Present: Clear to auscultation Abdomen: Present: normal appearance
--- NOTE | 2019-01-02 13:09 | Discharge Summary ---
Providers - Providers Date of Admission: 01/01/19 09:22 Date of discharge: 01/02/19 Attending physician: AMARJIT DIETZ Primary care physician: ALEKSANDRA ACHARYA Hospitalization Reason for admission: other (uterine fibroids) Procedure: other (robotic hysterectomy and BSO) Incision: normal Discharge diagnosis: other (Uterine fibroids and pelvic pain) Hospital course: Patient admitted the day of surgery and underwent a robotic hysterectomy. See op note. Postop uneventful Condition at discharge: Good Disposition: DC-01 TO HOME OR SELFCARE - Discharge Diagnoses (1) Chronic pelvic pain in female Status: Acute (2) Leiomyoma Status: Acute Plan - Discharge Medications Prescriptions: Ibuprofen [Motrin] 800 mg PO Q8HR PRN #60 tablet PRN Reason: Pain, Mild (1-3) oxyCODONE /ACETAMINOPHEN [Percocet 5/325] 1 tab PO Q6HR PRN #30 tablet PRN Reason: Pain - Provider Discharge Summary Activity: no sex for 6 weeks, no heavy lifting 4 weeks, no strenuous exercise Diet: routine Instructions: routine Additional instructions: [] Smoking cessation referral if applicable(refer to patient education folder for contact #) [] Refer to [facility] Book[facility] Call your doctor immediately for: * Fever > 100.5 * Heavy vaginal bleeding ( >1 pad per hour) * Severe persistent headache * Shortness of breath * Reddened, hot, painful area to leg or breast * Drainage or odor from incision. * Keep incision clean and dry at all times and follow doctor's instructions regarding bathing/showering schedule followup with Dr Hsu in 4 weeks - Follow up plan
[2019-01-02 13:23] VITALS: BP 107/65
== END 2019-01-02 14:15 | disposition home or self-care (01) ==
LOC: OR 06:06 → OB 09:22
PROVIDERS: ADMIT Obstetrics & Gynecology; ATTEND Obstetrics & Gynecology
DX: R10.2 Pelvic and perineal pain (principal); D21.9 Benign neoplasm of connective and other soft tissue, unspecified; J45.909 Unspecified asthma, uncomplicated; I10 Essential (primary) hypertension
CPT/HCPCS: 36415; 58573; 64450; 85014; 85018; 85025; 86850; 86900; 86901; 88307; 96372; 96374; 96376; A4217; G0378; J0690; J1100; J1885; J2250; J2270; J2370; J2405; J2704; J2710; J2765; J3010; J7120; S2900

== ENCOUNTER 2020-06-06 04:39 | Emergency (ER) | payer SELFPAY ==
[2020-06-06 06:31] LABS: Basophils % (Auto) 0.4 % (0.0-1.8); Eosinophils % (Auto) 0.4 % (0.0-4.3); Hematocrit 38.2 % (30.3-42.9); Hemoglobin 13.1 gm/dl (10.1-14.3); Lymphocytes # (Auto) 2.5 K/mm3 (1.2-5.4); Lymphocytes % (Auto) 28.3 % (13.4-35.0); Mean Corpuscular HGB Conc 34 % (30-34); Mean Corpuscular Volume 89 fl (79-97); Monocytes # (Auto) 0.7 K/mm3 (0.0-0.8); Monocytes % (Auto) 7.3 % (0.0-7.3); Platelet Count 264 K/mm3 (140-440); Red Blood Count 4.28 M/mm3 (3.65-5.03); Red Cell Distribution Width 14.9 % (13.2-15.2)
[2020-06-06 06:45] LABS: Alanine Aminotransferase 20 units/L (7-56); Albumin 3.9 g/dL (3.9-5); Blood Urea Nitrogen 11 mg/dL (7-17); Calcium 8.4 mg/dL (8.4-10.2); Hemolysis Index 1
[2020-06-06 06:46] LABS: BUN/Creatinine Ratio 16
[2020-06-06] MEDS ORDERED: SODIUM CHLORIDE 0.9% 1000 ML 1,000 ML IV ONE ×2 (07:29→09:36)
--- NOTE | 2020-06-06 09:44 | Emergency Department Report ---
ED General Adult HPI - General Chief complaint: Hyperglycemia Stated complaint: HIGH BLOOD SUGAR Time Seen by Provider: 06/06/20 09:35 Source: patient, EMS Mode of arrival: Wheelchair Limitations: No Limitations - History of Present Illness Initial comments: Patient is a 44-year-old female with history of prediabetes who presents emergency department for evaluation of general malaise and nausea for the past 7 hours without focal complaint. Patient denies chest pain, denies abdominal pain, denies fever. Patient denies dysuria, however, does complain of increased thirst. - Related Data Home Medications Medication Instructions Recorded Confirmed Last Taken lisinopriL [Prinivil] 10 mg PO QDAY 01/23/18 01/01/19 12/31/18 09:00 ALBUTEROL Inhaler(NF) 2 puff INHALATION BID PRN 06/25/18 12/26/18 11/13/18 Prempro 0.3 mg-1.5 mg Tablet 1 tab PO DAILY 06/25/18 01/01/19 12/31/18 09:00 Esomeprazole Magnesium [NexIUM] 40 mg PO QDAY 12/26/18 01/01/19 12/31/18 05:00 Sucralfate [Carafate] 1 tab PO ACHS 12/26/18 01/01/19 01/01/19 05:00 Previous Rx's Medication Instructions Recorded Last Taken Type Ibuprofen [Motrin] 800 mg PO Q8HR PRN #60 tablet 01/02/19 Unknown Rx oxyCODONE /ACETAMINOPHEN [Percocet 1 tab PO Q6HR PRN #30 tablet 01/02/19 Unknown Rx 5/325] metFORMIN [Glucophage] 500 mg PO BID #60 tablet 06/06/20 Unknown Rx Allergies Allergy/AdvReac Type Severity Reaction Status Date / Time No Known Allergies Allergy Verified 12/26/18 16:53 ED Review of Systems ROS: Stated complaint: HIGH BLOOD SUGAR Other details as noted in HPI Comment: All other systems reviewed and negative ED Past Medical Hx - Past Medical History Hx Hypertension: Yes Hx Deep Vein Thrombosis: No Hx Asthma: Yes (No recent hospitalization) Additional medical history: Diverticulitis - Surgical History Additional Surgical History: ABLATION-ENDOMETRIAL - Social History Smoking Status: Never Smoker Substance Use Type: None - Medications Home Medications: Home Medications Medication Instructions Recorded Confirmed Last Taken Type lisinopriL [Prinivil] 10 mg PO QDAY 01/23/18 01/01/19 12/31/18 09:00 History ALBUTEROL Inhaler(NF) 2 puff INHALATION BID PRN 06/25/18 12/26/18 11/13/18 H istory Prempro 0.3 mg-1.5 mg Tablet 1 tab PO DAILY 06/25/18 01/01/19 12/31/18 09:00 History Esomeprazole Magnesium [NexIUM] 40 mg PO QDAY 12/26/18 01/01/19 12/31/18 05:00 History Sucralfate [Carafate] 1 tab PO ACHS 12/26/18 01/01/19 01/01/19 05:00 History Ibuprofen [Motrin] 800 mg PO Q8HR PRN #60 tablet 01/02/19 Unknown Rx oxyCODONE /ACETAMINOPHEN [Percocet 1 tab PO Q6HR PRN #30 tablet 01/02/19 Unknown Rx 5/325] metFORMIN [Glucophage] 500 mg PO BID #60 tablet 06/06/20 Unknown Rx ED Physical Exam - General Limitations: No Limitations General appearance: alert, in no apparent distress - Head Head exam: Present: atraumatic, normocephalic - Eye Eye exam: Present: normal appearance - ENT ENT exam: Present: mucous membranes moist - Neck Neck exam: Present: normal inspection - Respiratory Respiratory exam: Present: normal lung sounds bilaterally. Absent: respiratory distress - Cardiovascular Cardiovascular Exam: Present: regular rate, normal rhythm - GI/Abdominal GI/Abdominal exam: Present: soft, normal bowel sounds - Extremities Exam Extremities exam: Present: normal inspection - Back Exam Back exam: Present: normal inspection - Neurological Exam Neurological exam: Present: alert, oriented X3 - Psychiatric Psychiatric exam: Present: normal affect, normal mood - Skin Skin exam: Present: warm, dry, intact, normal color. Absent: rash ED Course Vital Signs 06/06/20 06/06/20 06/06/20 04:46 10:09 14:29 Temperature 97.5 F L 97.9 F 98.2 F Pulse Rate 85 89 Respiratory 18 16 18 Rate Blood Pressure 132/70 Blood Pressure 116/69 146/86 [Right] O2 Sat by Pulse 100 93 Oximetry - Reevaluation(s) Reevaluation #1: 06/06/20 09:43 Patient initially treated with IV normal saline 1 L x 2 Reevaluation #2: 06/07/20 06:41 Diagnostics reassuring, patient states she feels much better after 2 L IV normal saline. Discussed with patient new diagnosis of diabetes type 2, advised patient she requires definitive diagnosis and further evaluation by primary care doctor. Advised patient to consult primary care doctor and/or self educate regarding dietary changes and necessary lifestyle changes moving forward. On discharge, patient in acute distress, neuro exam nonfocal. ED Medical Decision Making - Lab Data Result diagrams: 06/06/20 05:53 06/06/20 11:56 Labs 06/06/20 06/06/20 06/06/20 04:44 05:53 05:53 WBC 8.9 RBC 4.28 Hgb 13.1 Hct 38.2 MCV 89 MCH 31 MCHC 34 RDW 14.9 Plt Count 264 Lymph % (Auto) 28.3 Rapides % (Auto) 7.3 Eos % (Auto) 0.4 Baso % (Auto) 0.4 Lymph # (Auto) 2.5 Rapides # (Auto) 0.7 Eos # (Auto) 0.0 Baso # (Auto) 0.0 Seg Neutrophils % 63.6 Seg Neutrophils # 5.7 ABG pH POC ABG pCO2 POC ABG pO2 POC ABG HCO3 ABG O2 Saturation POC ABG Base Excess ABG Hemoglobin ABG Oxyhemoglobin ABG Methemoglobin ABG Sodium ABG Potassium ABG Chloride ABG Glucose VBG pH Carboxyhemoglobin FiO2 % Sodium 133 L Potassium 3.5 L Chloride 96.2 L Carbon Dioxide 21 L Anion Gap 19 BUN 11 Creatinine 0.7 Estimated GFR > 60 BUN/Creatinine Ratio 16 Glucose 317 H POC Glucose 267 H Calcium 8.4 Total Bilirubin 0.30 AST 14 ALT 20 Alkaline Phosphatase 90 Troponin T Total Protein 7.2 Albumin 3.9 Albumin/Globulin Ratio 1.2 HCG, Qual Arterial Blood Glucose Arterial Blood Ionized Calcium Urine Color Urine Turbidity Urine pH Ur Specific Pruden Urine Protein Urine Glucose (UA) Urine Ketones Urine Blood Urine Nitrite Urine Bilirubin Urine Urobilinogen Ur Leukocyte Esterase Urine WBC (Auto) Urine RBC (Auto) U Epithel Cells (Auto) Urine Mucus 06/06/20 06/06/20 06/06/20 05:53 05:53 11:56 WBC RBC Hgb Hct MCV MCH MCHC RDW Plt Count Lymph % (Auto) Rapides % (Auto) Eos % (Auto) Baso % (Auto) Lymph # (Auto) [place] # (Auto) Eos # (Auto) Baso # (Auto) Seg Neutrophils % Seg Neutrophils # ABG pH POC ABG pCO2 POC ABG pO2 POC ABG HCO3 ABG O2 Saturation POC ABG Base Excess ABG Hemoglobin ABG Oxyhemoglobin ABG Methemoglobin ABG Sodium ABG Potassium ABG Chloride ABG Glucose VBG pH 7.288 L Carboxyhemoglobin FiO2 % Sodium 138 Potassium 4.2 Chloride 102.6 Carbon Dioxide 24 Anion Gap 16 BUN 7 Creatinine 0.5 L Estimated GFR > 60 BUN/Creatinine Ratio 14 Glucose 206 H POC Glucose Calcium 8.1 L Total Bilirubin AST ALT Alkaline Phosphatase Troponin T Total Protein Albumin Albumin/Globulin Ratio HCG, Qual Negative Arterial Blood Glucose Arterial Blood Ionized Calcium Urine Color Urine Turbidity Urine pH Ur Specific Pruden Urine Protein Urine Glucose (UA) Urine Ketones Urine Blood Urine Nitrite Urine Bilirubin Urine Urobilinogen Ur Leukocyte Esterase Urine WBC (Auto) Urine RBC (Auto) U Epithel Cells (Auto) Urine Mucus 06/06/20 06/06/20 06/06/20 11:56 14:11 14:18 WBC RBC Hgb Hct MCV MCH MCHC RDW Plt Count Lymph % (Auto) Rapides % (Auto) Eos % (Auto) Baso % (Auto) Lymph # (Auto) [place] # (Auto) Eos # (Auto) Baso # (Auto) Seg Neutrophils % Seg Neutrophils # ABG pH 7.398 POC ABG pCO2 36.6 POC ABG pO2 71.3 L POC ABG HCO3 22.1 ABG O2 Saturation 95.1 POC ABG Base Excess -2.2 ABG Hemoglobin 14.2 ABG Oxyhemoglobin 94.2 ABG Methemoglobin 0.3 ABG Sodium 139.5 ABG Potassium 4.1 ABG Chloride 108.0 H ABG Glucose 183 H VBG pH 7.228 L Carboxyhemoglobin 0.6 FiO2 % 21.0 Sodium Potassium Chloride Carbon Dioxide Anion Gap BUN Creatinine Estimated GFR BUN/Creatinine Ratio Glucose POC Glucose Calcium Total Bilirubin AST ALT Alkaline Phosphatase Troponin T < 0.010 Total Protein Albumin Albumin/Globulin Ratio HCG, Qual Arterial Blood Glucose 183 H Arterial Blood Ionized Calcium 4.6 Urine Color Urine Turbidity Urine pH Ur Specific Pruden Urine Protein Urine Glucose (UA) Urine Ketones Urine Blood Urine Nitrite Urine Bilirubin Urine Urobilinogen Ur Leukocyte Esterase Urine WBC (Auto) Urine RBC (Auto) U Epithel Cells (Auto) Urine Mucus 06/06/20 Unknown WBC RBC Hgb Hct MCV MCH MCHC RDW Plt Count Lymph % (Auto) Rapides % (Auto) Eos % (Auto) Baso % (Auto) Lymph # (Auto) [place]ides # (Auto) Eos # (Auto) Baso # (Auto) Seg Neutrophils % Seg Neutrophils # ABG pH POC ABG pCO2 POC ABG pO2 POC ABG HCO3 ABG O2 Saturation POC ABG Base Excess ABG Hemoglobin ABG Oxyhemoglobin ABG Methemoglobin ABG Sodium ABG Potassium ABG Chloride ABG Glucose VBG pH Carboxyhemoglobin FiO2 % Sodium Potassium Chloride Carbon Dioxide Anion Gap BUN Creatinine Estimated GFR BUN/Creatinine Ratio Glucose POC Glucose Calcium Total Bilirubin AST ALT Alkaline Phosphatase Troponin T Total Protein Albumin Albumin/Globulin Ratio HCG, Qual Arterial Blood Glucose Arterial Blood Ionized Calcium Urine Color Straw Urine Turbidity Clear Urine pH 5.0 Ur Specific Pruden 1.021 Urine Protein <15 mg/dl Urine Glucose (UA) >=500 Urine Ketones Tr Urine Blood Mod Urine Nitrite Neg Urine Bilirubin Neg Urine Urobilinogen < 2.0 Ur Leukocyte Esterase Neg Urine WBC (Auto) 1.0 Urine RBC (Auto) 3.0 U Epithel Cells (Auto) < 1.0 Urine Mucus Few Vital Signs 06/06/20 06/06/20 06/06/20 04:46 10:09 14:29 Temperature 97.5 F L 97.9 F 98.2 F Pulse Rate 85 89 Respiratory 18 16 18 Rate Blood Pressure 132/70 Blood Pressure 116/69 146/86 [Right] O2 Sat by Pulse 100 93 Oximetry Critical care attestation.: If time is entered above; I have spent that time in minutes in the direct care of this critically ill patient, excluding procedure time. ED Disposition Clinical Impression: Hyperglycemia Disposition: DC-01 TO HOME OR SELFCARE Is pt being admited?: No Condition: Stable Instructions: Type 2 Diabetes Mellitus, Diagnosis, Adult, Hyperglycemia, [id number], Diabetes Mellitus and Nutrition, Adult Additional Instructions: Follow-up with primary care doctor in 1 to 2 days for reevaluation. Return to the emergency department for worsening symptoms. Prescriptions: metFORMIN [Glucophage] 500 mg PO BID #60 tablet Referrals: PRIMARY CARE, [Primary Care Provider] - 3-5 Days
[2020-06-06 10:00] LABS: Bilirubin,Urine NEG (Negative); Blood,Urine MOD (Negative); Color,Urine Straw (Yellow); Mucus,Urine FEW /HPF; Protein,Urine <15 mg/dL mg/dL (Negative); Urobilinogen,Urine < 2.0 mg/dL (<2.0)
[2020-06-06 12:43] LABS: BUN/Creatinine Ratio 14; Blood Urea Nitrogen 7 mg/dL (7-17); Calcium 8.1 mg/dL (8.4-10.2); Hemolysis Index 30
[2020-06-06 14:30] VITALS: BP 146/86
== END 2020-06-06 14:56 | disposition home or self-care (01) ==
LOC: ED 04:39
DX: R73.9 Hyperglycemia, unspecified (principal); I10 Essential (primary) hypertension; J45.909 Unspecified asthma, uncomplicated; Z98.890 Other specified postprocedural states; Z79.899 Other long term (current) drug therapy
CPT/HCPCS: 36415; 80048; 80053; 81001; 82805; 82962; 84484; 84703; 85025; 96360; 99284; J7030